=== PATIENT | male | born 1995 | race Two or more races ===

== ENCOUNTER 2017-02-09 20:09 | Emergency (ER) | payer SELFPAY ==
[2017-02-09 20:14] VITALS: TEMP 98.6; O2SAT 99
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
[2017-02-09] MEDS ORDERED: HYDROCOD/APAP 5/325 PREPACK#6 BTL TAKEHOME ONE (21:10)
[2017-02-09 21:39] VITALS: BP 125/90; PULSE 100; RESP 14
== END 2017-02-09 21:33 | disposition home or self-care (01) ==
DX: S69.92XA Unspecified injury of left wrist, hand and finger(s), initial encounter (principal); F17.200 Nicotine dependence, unspecified, uncomplicated; V00.131A Fall from skateboard, initial encounter; Y99.8 Other external cause status; Y93.51 Activity, roller skating (inline) and skateboarding